=== PATIENT | male | born 1970 ===

== ENCOUNTER 2017-12-17 12:34 | Emergency (ER) | payer OTHER ==
[2017-12-17 12:46] VITALS: BP 126/87; PULSE 92; RESP 18; TEMP 98.4; O2SAT 96
[2017-12-17] MEDS ORDERED: Naproxen 500 MG TAB PO STA (13:28)
--- NOTE | 2017-12-17 13:40 | ED PDOC ---
Upper Extremity Pain/Injury Time Seen by Provider: 12/17/17 13:26 Chief Complaint (Nursing): Upper Extremity Problem/Injury Chief Complaint (Provider): Right elbow pain History Per: Patient History/Exam Limitations: no limitations Onset/Duration Of Symptoms: Days (x 2 months) Current Symptoms Are (Timing): Still Present Exacerbating Factor(s): Strenuous Use Of Affected Area Additional Complaint(s): 47 y/o male presents to the ER complaining of 2 months of intermittent right elbow pain. Denies any trauma or injury. States that 2 months ago he had been doing repetitive motion of extending the right arm while working on a car. Initially pain was improving with pain medication, however now it has been progressively worsening, and is disrupting his sleep. PMD: Non-[facility] Provider Past Medical History Reviewed: Historical Data, Nursing Documentation, Vital Signs Vital Signs: Last Vital Signs Temp 98.4 F 12/17/17 12:41 Pulse 92 H 12/17/17 12:41 Resp 18 12/17/17 12:41 BP 126/87 12/17/17 12:41 Pulse Ox 96 12/17/17 12:41 - Medical History PMH: HTN - Family History Family History: States: Unknown Family Hx - Social History Current smoker - smoking cessation education provided: Yes Alcohol: Social Drugs: Denies - Immunization History Hx Tetanus Toxoid Vaccination: Yes Hx Influenza Vaccination: Yes Hx Pneumococcal Vaccination: No - Home Medications Home Medications: Ambulatory Orders Medication Instructions Recorded Clindamycin [Cleocin] 300 mg PO Q6 #28 cap 04/24/17 traMADol [Ultram] 50 mg PO TID #7 tab 04/24/17 Arm Brace [Wrist Brace] 1 each MC ONCE PRN #1 each 12/17/17 Naproxen 500 mg PO Q12 PRN #14 tab 12/17/17 - Allergies Allergies/Adverse Reactions: Allergies Allergy/AdvReac Type Severity Reaction Status Date / Time No Known Allergies Allergy Unverified 04/24/17 20:18 Review of Systems ROS Statement: Except As Marked, All Systems Reviewed And Found Negative Musculoskeletal: Positive for: Arm Pain (right elbow) Neurological: Negative for: Numbness (and tingling) Physical Exam - Reviewed Nursing Documentation Reviewed: Yes Vital Signs Reviewed: Yes - Physical Exam Appears: Positive for: Non-toxic, No Acute Distress Head Exam: Positive for: ATRAUMATIC, NORMAL INSPECTION, NORMOCEPHALIC Skin: Positive for: Normal Color, Warm, Dry Eye Exam: Positive for: EOMI, Normal appearance, PERRL Neck: Positive for: Normal, Painless ROM Pulses-Radial (L): 2+ Pulses-Radial (R): 2+ Extremity: Positive for: Tenderness (to lateral malleolus of right elbow. No olecranon tenderness), Capillary Refill (< 2 sec), Other (Able to flex and extend; limited due to pain). Negative for: Deformity, Swelling (or erythema) Neurologic/Psych: Positive for: Alert, Oriented. Negative for: Motor/Sensory Deficits - ECG O2 Sat by Pulse Oximetry: 96 (RA) Pulse Ox Interpretation: Normal - Progress ED Course And Treament: xry of elbow: neg for fx Medical Decision Making Medical Decision Making: Initial Impression: Right Elbow Pain Time: 13:28 Initial Plan: --Naproxen 500 mg PO --X-ray Right Elbow --Reevaluation Scribe Attestation: Documented by Josefina Neville, acting as a scribe for Patrick Dodd PA-C Provider Scribe Attestation: All medical record entries made by the Scribe were at my direction and personally dictated by me. I have reviewed the chart and agree that the record accurately reflects my personal performance of the history, physical exam, medical decision making, and the department course for this patient. I have also personally directed, reviewed, and agree with the discharge instructions and disposition. Disposition - Clinical Impression Clinical Impression: Lateral epicondylitis of elbow - Patient ED Disposition Is Patient to be Admitted: No - Disposition Referrals: [facility] [Outside] Armand Ohara MD [Medical Doctor] - Disposition: Routine/Home Disposition Time: 14:44 Condition: STABLE Prescriptions: Arm Brace [Wrist Brace] 1 each MC ONCE PRN #1 each PRN Reason: Pain, Moderate (4-7) Naproxen 500 mg PO Q12 PRN #14 tab PRN Reason: Pain, Moderate (4-7) Instructions: Lateral Epicondylitis Forms: [facility] (Bolivian), [facility] ED School/Work Excuse Print Language: YI
--- NOTE | 2017-12-17 14:14 | RAD ---
PROCEDURE: Radiographs of the right elbow. HISTORY: elbow injury COMPARISON: No prior. FINDINGS: BONES: No acute fracture. JOINTS: Unremarkable. SOFT TISSUES: Normal. JOINT EFFUSION: None. OTHER FINDINGS: None. IMPRESSION: No demonstrated fracture or dislocation.
--- NOTE | 2017-12-17 14:14 | RAD ---
PROCEDURE: Radiographs of the left elbow. HISTORY: elbow pain COMPARISON: No prior. FINDINGS: BONES: No acute fracture. JOINTS: Unremarkable. SOFT TISSUES: Normal. JOINT EFFUSION: None. OTHER FINDINGS: None IMPRESSION: No demonstrated fracture or dislocation.
== END 2017-12-17 15:03 | disposition home or self-care (01) ==
LOC: H.ER 12:34
DX: M77.10 Lateral epicondylitis, unspecified elbow (principal)